=== PATIENT | female | born 1945 | race Caucasian/White ===

== ENCOUNTER 2018-04-20 16:40 | Emergency (ER) | payer BC, MEDICARE ==
[~2018-04-20 16:40] MED LIST changes: -AMLO2.5T75 PO; -IRBE150T50 PO
--- NOTE | 2018-04-20 17:02 | ER Report ---
History and Physical Time Seen By MD: 16:58 HPI/ROS CHIEF COMPLAINT: Chest pain HISTORY OF PRESENT ILLNESS: This is a 72-year-old female who presents to the emergency department via EMS for chest pain. Patient states that about 6:00 this morning she developed midsternal back pain, anterior chest pain radiating up into her neck bilaterally with little bit of discomfort on the left posterior back as well. Patient states they waited for some time thinking that the pain would go away, the pain did start to nitza but never did resolve completely therefore they called EMS. Patient arrives alert and oriented acting appropriate. Patient states the pain now is resolving. Patient did get 1.4 sublingual nitroglycerin as well as 324 baby aspirin and round. 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 Patient also states that she did have some cramping in her left lateral lower leg yesterday. No aches or chills, no headaches, rashes or any other complaints. REVIEW OF SYSTEMS: Constitutional: No fever, no chills. Eyes: No discharge. ENT: No sore throat. Cardiovascular: As above. Respiratory: No cough, no shortness of breath. Gastrointestinal: No abdominal pain, no vomiting. Genitourinary: No hematuria. Musculoskeletal: As above. Skin: No rashes. Neurological: No headache. Allergies: Coded Allergies: morphine (Verified Allergy, Mild, 04/20/18) Uncoded Allergies: contrast dye (Allergy, Intermediate, convulsion , 04/20/18) Home Meds Reported Medications Amlodipine Besylate (NORVASC) 2.5 Mg Tablet, 1 TAB PO QDAY, TAB 04/20/18 Irbesartan (AVAPRO) 150 Mg Tablet, 150 MG PO QDAY 04/20/18 Albuterol Sulfate 90 Mcg/Act (PROAIR HFA 90 MCG/ACT) 8.5 Gm Hfa.aer.ad, 1 - 2 PUFF IH 3-4XD 08/23/13 Estradiol (ESTRACE) 1 Mg Tablet, 1 MG PO 08/23/13 Montelukast Sodium 5 Mg Chew Tab (SINGULAIR 5 MG CHEW TAB) 5 Mg Tab.chew, 1 TAB PO QDAY CHEW ONE TABLET EVERY DAY 08/23/13 Naproxen (NAPROSYN) 250 Mg Tablet, 250 MG PO Q8H, TAB 08/23/13 Hydrochlorothiazide (HYDROCHLOROTHIAZIDE) 25 Mg Tablet, 1 TAB PO QDAY TAKE ONE TABLET BY MOUTH EVERY DAY 08/23/13 Atenolol (ATENOLOL) 25 Mg Tablet, 1 TAB PO BID TAKE ONE TABLET BY MOUTH TWICE A DAY 08/23/13 Past Medical/Surgical History Patient has a past medical and surgical history of hypertension, asthma, bladder disease, wears glasses, appendectomy, cholecystectomy, hysterectomy, tonsillectomy. Reviewed Nurses Notes: Yes Hx Smoking: No Constitutional Vital Sign - Last 24 Hours 04/20/18 04/20/18 04/20/18 04/20/18 16:55 16:55 17:00 17:10 Temp 98.0 Pulse 75 79 75 Resp 16 20 B/P (MAP) 149/84 149/84 (105) 138/79 (98) Pulse Ox 94 90 93 O2 Delivery Room Air 04/20/18 04/20/18 04/20/18 04/20/18 17:25 17:30 17:40 17:55 Pulse 70 77 74 Resp 12 11 11 B/P (MAP) 139/90 (106) Pulse Ox 90 91 92 04/20/18 04/20/18 04/20/18 04/20/18 18:00 18:30 18:35 18:45 Pulse 78 Resp 13 B/P (MAP) 131/77 (95) 131/87 (102) 124/79 (94) Pulse Ox 93 04/20/18 04/20/18 04/20/18 04/20/18 18:50 18:59 19:05 19:06 Pulse 79 75 Resp 13 15 B/P (MAP) 129/81 (97) 128/83 (98) Pulse Ox 90 93 04/20/18 04/20/18 04/20/18 04/20/18 19:10 19:20 19:30 19:35 Pulse 72 73 Resp 21 13 B/P (MAP) 131/84 (100) 133/102 (112) 124/98 (107) Pulse Ox 92 90 04/20/18 19:40 B/P (MAP) 122/84 (97) Intake and Output 6/9/18 6/9/18 6/10/18 14:59 22:59 06:59 Intake Total 50 ml Balance 50 ml Physical Exam General Appearance: The patient is alert, has no immediate need for airway protection and no signs of toxicity. Eyes: Pupils equal and round no pallor or injection. ENT, Mouth: Mucous membranes are moist. Respiratory: There are no retractions, lungs are clear to auscultation. Cardiovascular: Regular rate and rhythm, no murmurs, clicks or rubs. Gastrointestinal: Abdomen is soft and non tender, no masses, bowel sounds normal. Neurological: Alert and oriented 4. Moving all extremities. Following all commands. No focal neuro deficits. Skin: Warm and dry, no rashes. Musculoskeletal: Cervical and thoracic spine discomfort with palpation. No obvious deformities, crepitus or bruising identified. Extremities are nontender, nonswollen and have full range of motion. DIFFERENTIAL DIAGNOSIS: After history and physical exam differential diagnosis was considered for chest pain including but not limited to myocardial ischemia, pericarditis pulmonary embolus, chest wall pain, pleural inflammation and pulmonary infectious causes.back pain including but not limited to muscular pain , herniated disc, spine fracture, intra-abdominal causes and urinary tract infection. Medical Decision Making Data Points Result Diagram: 04/20/18 1746 04/20/18 1746 Laboratory Hematology Test 04/20/18 17:46 04/20/18 17:55 Red Blood Count 4.68 M/uL (4.17-5.56) Mean Corpuscular Volume 91.1 fL (80.0-96.0) Mean Corpuscular Hemoglobin 32.2 pg (26.0-33.0) Mean Corpuscular Hemoglobin Concent 35.4 g/dL (32.0-36.0) Red Cell Distribution Width 12.7 % (11.5-14.5) Mean Platelet Volume 8.0 fL (7.2-11.1) Neutrophils (%) (Auto) 80.1 % (39.4-72.5) Lymphocytes (%) (Auto) 10.5 % (17.6-49.6) Monocytes (%) (Auto) 5.8 % (4.1-12.4) Eosinophils (%) (Auto) 2.7 % (0.4-6.7) Basophils (%) (Auto) 0.9 % (0.3-1.4) Nucleated RBC Relative Count (auto) 0.1 /100WBC Neutrophils # (Auto) 7.5 K/uL (2.0-7.4) Lymphocytes # (Auto) 1.0 K/uL (1.3-3.6) Monocytes # (Auto) 0.6 K/uL (0.3-1.0) Eosinophils # (Auto) 0.3 K/uL (0.0-0.5) Basophils # (Auto) 0.1 K/uL (0.0-0.1) Nucleated RBC Absolute Count (auto) 0.01 K/uL Sodium Level 137 mmol/L (137-145) Potassium Level 3.7 mmol/L (3.5-5.0) Chloride Level 102 mmol/L (98-107) Carbon Dioxide Level 22 mmol/L (22-31) Blood Urea Nitrogen 27 mg/dl (7-18) Creatinine 1.40 mg/dl (0.52-1.04) Glomerular Filtration Rate Calc 37.0 Random Glucose 114 mg/dl (75-110) Calcium Level 9.8 mg/dl (8.4-10.2) Total Bilirubin 0.5 mg/dl (0.2-1.3) Aspartate Amino Transf (AST/SGOT) 35 U/L (0-35) Alanine Aminotransferase (ALT/SGPT) 42 U/L (0-56) Alkaline Phosphatase 83 U/L (0-126) Troponin I 0.162 ng/ml Total Protein 6.7 gm/dl (6.3-8.2) Albumin 4.1 g/dl (3.5-5.0) D-Dimer Quantitative (PE/DVT) 0.27 ug/ml (0-0.50) Chemistry Test 04/20/18 17:46 04/20/18 17:55 White Blood Count 9.4 k/uL (4.5-11.0) Red Blood Count 4.68 M/uL (4.17-5.56) Hemoglobin 15.1 g/dL (12.0-16.0) Hematocrit 42.6 % (34.0-47.0) Mean Corpuscular Volume 91.1 fL (80.0-96.0) Mean Corpuscular Hemoglobin 32.2 pg (26.0-33.0) Mean Corpuscular Hemoglobin Concent 35.4 g/dL (32.0-36.0) Red Cell Distribution Width 12.7 % (11.5-14.5) Platelet Count 222 K/uL (150-450) Mean Platelet Volume 8.0 fL (7.2-11.1) Neutrophils (%) (Auto) 80.1 % (39.4-72.5) Lymphocytes (%) (Auto) 10.5 % (17.6-49.6) Monocytes (%) (Auto) 5.8 % (4.1-12.4) Eosinophils (%) (Auto) 2.7 % (0.4-6.7) Basophils (%) (Auto) 0.9 % (0.3-1.4) Nucleated RBC Relative Count (auto) 0.1 /100WBC Neutrophils # (Auto) 7.5 K/uL (2.0-7.4) Lymphocytes # (Auto) 1.0 K/uL (1.3-3.6) Monocytes # (Auto) 0.6 K/uL (0.3-1.0) Eosinophils # (Auto) 0.3 K/uL (0.0-0.5) Basophils # (Auto) 0.1 K/uL (0.0-0.1) Nucleated RBC Absolute Count (auto) 0.01 K/uL Glomerular Filtration Rate Calc 37.0 Calcium Level 9.8 mg/dl (8.4-10.2) Total Bilirubin 0.5 mg/dl (0.2-1.3) Aspartate Amino Transf (AST/SGOT) 35 U/L (0-35) Alanine Aminotransferase (ALT/SGPT) 42 U/L (0-56) Alkaline Phosphatase 83 U/L (0-126) Troponin I 0.162 ng/ml Total Protein 6.7 gm/dl (6.3-8.2) Albumin 4.1 g/dl (3.5-5.0) D-Dimer Quantitative (PE/DVT) 0.27 ug/ml (0-0.50) Coagulation Test 04/20/18 17:55 D-Dimer Quantitative (PE/DVT) 0.27 ug/ml EKG/Imaging EKG Interpretation 12 lead EKG: Time of EKG 1656. Rhythm: Normal sinus rhythm, ventricular rate 72 bpm. [place]: normal QRS: normal ST segments: No ST depression or elevation identified. Inverted T wave in V2. Imaging 2 VIEWS CHEST INDICATION: Chest pain. COMPARISON: None available FINDINGS: Cardiomediastinal silhouette and pulmonary vessels within normal limits. There is no focal infiltrate or lobar consolidation. There is no pneumothorax or pleural effusion. No nodule. Upper abdomen is unremarkable. No acute bony abnormality. IMPRESSION: 1. No acute cardiopulmonary process. Report Dictated By: Festus Aguilar at 04/20/2018 6:28 PM Report E-Signed By: Festus Aguilar at 04/20/2018 6:30 PM WSN:[id number] THORACIC SPINE 3 VIEWS INDICATION: Back pain. COMPARISON: None available FINDINGS: 3 views of the thoracic spine. The vertebral bodies are aligned. No compression fractures or bony lesions. Mild anterior degenerative osteophytes without other significant degenerative changes. The end plates are maintained. Pedicles well seen. The remaining bony and soft tissues are unremarkable. Visualized lumbar spine does show mild degenerative changes at the L3-4 level. IMPRESSION: Mild degenerative changes without acute abnormality. Report Dictated By: Festus Aguilar at 04/20/2018 6:39 PM Report E-Signed By: Festus Aguilar at 04/20/2018 6:41 PM WSN:[id number] Location: [facility] Patient: Marybel Gallegos : 1945 Visit/Account:[id number] Date of : 04/20/2018 CERVICAL SPINE 2 OR 3 VIEW INDICATION: Neck pain. COMPARISON: None available FINDINGS: 3 views of the cervical spine. There is minimal anterior spondylolisthesis of C5 over C6 due to degenerative changes. The remaining vertebral bodies are aligned. No fracture or facet dislocation. No bony lesions. There is diffuse bvli-fj-jgwtsfxy degenerative changes which are more prominent C6-7 level. These changes include disc space narrowing, osteophytes and facet arthropathy. The endplates are maintained. The prevertebral soft tissues are normal. Lung apices are clear. IMPRESSION: Degenerative changes without acute abnormality. Report Dictated By: Festus Aguilar at 04/20/2018 6:42 PM Report E-Signed By: Festus Aguilar at 04/20/2018 6:44 PM WSN:[email or web address] ED Course/Re-evaluation Clinical Indication for ER IV: Hydration, IV Access ED Course The patient was admitted to room via EMS. History of physical was obtained. Differential diagnoses were considered. Patient was given one sublingual nitroglycerin in route by EMS, as well as 324 baby aspirin. An IV was started via EMS. A CBC, CMP, d-dimer and troponin were obtained. CBC unremarkable. Chemistry showing BUN 27 creatinine 1.4. Negative d-dimer. Troponin positive at 0.162. Two-view chest x-ray, thoracic and cervical spine x-rays were obtained. Thoracic and cervical spine x-ray showing mild degenerative disease. Negative chest x-ray. Patient was given one 0.4 mg sublingual nitroglycerin with mild relief of her back pain. I did review these results with the patient, she is visibly upset, however she does understand that the elevated troponin does indicate further investigation. I did speak with Dr. Malave as noted below from [facility] he's accepted the patient into his services. Patient will be transferred to [facility] via ground ambulance for an NSTEMI. Patient was also given 5 mg IV metoprolol. Vital signs at this time heart rate 80, pulse ox 91% on room air, BP 124/79. The patient had no other questions at this time. 04/20/2018 6:18:16 pm laboratory called with critical troponin of 0.162. 04/20/2018 6:48:24 pm I did speak with Dr. Malave, the melting furnace skimmer on-call at [facility], he agrees with the patient's symptomology and elevated troponin that she would benefit from further investigation. Patient will be transferred to [facility] via ground EMS. Dr. Malave also recommended giving metoprolol, the patient is asymptomatic at this time we'll hold off on the heparin. Decision to Disposition Date: Apr 20, 2018 Decision to Disposition Time: 18:47 Depart Departure Latest Vital Signs Vital Signs Date Time Temp Pulse Resp B/P (MAP) Pulse Ox O2 Delivery O2 Flow Rate FiO2 04/20/18 19:40 122/84 (97) 04/20/18 19:35 73 13 90 04/20/18 16:55 98.0 Room Air Impression: Primary Impression: NSTEMI (non-ST elevated myocardial infarction) Additional Impressions: Chest pain Elevated troponin Condition: Improved Disposition: XFER TO [facility] Problem Qualifiers Additional Impressions: Chest pain Chest pain type: chest pain due to myocardial ischemia Ischemic chest pain type: unspecified angina pectoris type Qualified Codes: I25.9 - Chronic ischemic heart disease, unspecified NAVA SIERRA [facility]- Apr 20, 2018 17:02
[2018-04-20] MEDS ORDERED: IRBE150T50 PO (17:13)
[2018-04-20] MEDS ORDERED: AMLO2.5T75 PO (17:13)
--- NOTE | 2018-04-20 17:21 | EKG ---
FACILITY: [facility] PATIENT NAME: APRIL JOY : [id number] MR: [id number] V: [id number] EXAM DATE: ORDERING PHYSICIAN: NAVA SIERRA TECHNOLOGIST: LEN Viveros Reason : CHEST PAIN Blood Pressure : / mmHG Vent. Rate : 072 BPM Atrial Rate : 072 BPM P-R Int : 150 ms QRS Dur : 088 ms QT Int : 410 ms P-R-T Axes : 044 -02 071 degrees QTc Int : 448 ms Normal sinus rhythm Low voltage QRS T flattening/inversion consistent with ischemia vs normal variant No previous ECGs available Confirmed by SOHPIA LOPEZ ([id number]) on 04/20/2018 9:07:00 PM Referred By: ARLETTE Confirmed By:SOPHIA LOPEZ
[2018-04-20 17:53] LABS: PLATELET COUNT, AUTOMATED 222 K/uL (150-450)
[2018-04-20] MEDS ORDERED: EMS NS 0.9%(*) 1000 ML BAG 1,000 ML IV ONE (18:10)
[2018-04-20] MEDS ORDERED: NITROGLYCERIN 0.4 MG SUBL SL ONE (18:30)
--- NOTE | 2018-04-20 18:34 | RADIOLOGY IMAGING REPORT ---
FACILITY: [facility] PATIENT NAME: Marybel Gallegos : 1945 MR: [id number] V: [id number] EXAM DATE: ORDERING PHYSICIAN: NAVA SIERRA TECHNOLOGIST: Location: [facility] Patient: Marybel Gallegos : 1945 Visit/Account:[id number] Date of Sevice: 04/20/2018 2 VIEWS CHEST INDICATION: Chest pain. COMPARISON: None available FINDINGS: Cardiomediastinal silhouette and pulmonary vessels within normal limits. There is no focal infiltrate or lobar consolidation. There is no pneumothorax or pleural effusion. No nodule. Upper abdomen is unremarkable. No acute bony abnormality. IMPRESSION: 1. No acute cardiopulmonary process. Report Dictated By: Festus Aguilar at 04/20/2018 6:28 PM Report E-Signed By: Festus Aguilar at 04/20/2018 6:30 PM WSN:[id number]
--- NOTE | 2018-04-20 18:45 | RADIOLOGY IMAGING REPORT ---
FACILITY: [facility] PATIENT NAME: Marybel Gallegos : 1945 MR: [id number] V: [id number] EXAM DATE: ORDERING PHYSICIAN: NAVA SIERRA TECHNOLOGIST: Location: [facility] Patient: Marybel Gallegos : 1945 Visit/Account:[id number] Date of Sevice: 04/20/2018 THORACIC SPINE 3 VIEWS INDICATION: Back pain. COMPARISON: None available FINDINGS: 3 views of the thoracic spine. The vertebral bodies are aligned. No compression fractures or bony lesions. Mild anterior degenerative osteophytes without other significant degenerative glez es. The end plates are maintained. Pedicles well seen. The remaining bony and soft tissues are unrema rkable. Visualized lumbar spine does show mild degenerative changes at the L3-4 level. IMPRESSION: Mild degenerative changes without acute abnormality. Report Dictated By: Festus Aguilar at 04/20/2018 6:39 PM Report E-Signed By: Festus Aguilar at 04/20/2018 6:41 PM WSN:[id number]
--- NOTE | 2018-04-20 18:47 | RADIOLOGY IMAGING REPORT ---
FACILITY: [facility] PATIENT NAME: Marybel Gallegos : 1945 MR: [id number] V: [id number] EXAM DATE: ORDERING PHYSICIAN: NAVA SIERRA TECHNOLOGIST: Location: [facility] [place] Patient: Marybel Gallegos : 1945 Visit/Account:[id number] Date of Sevice: 04/20/2018 CERVICAL SPINE 2 OR 3 VIEW INDICATION: Neck pain. COMPARISON: None available FINDINGS: 3 views of the cervical spine. There is minimal anterior spondylolisthesis of C5 over C6 due to degenerative changes. The remaining vertebral bodies are aligned. No fracture or facet disloca tion. No bony lesions. There is diffuse oqmo-rb-kzfetidy degenerative changes which are more prominen t C6-7 level. These changes include disc space narrowing, osteophytes and facet arthropathy. The endp lates are maintained. The prevertebral soft tissues are normal. Lung apices are clear. IMPRESSION: Degenerative changes without acute abnormality. Report Dictated By: Festus Aguilar at 04/20/2018 6:42 PM Report E-Signed By: Festus Aguilar at 04/20/2018 6:44 PM WSN:[email or web address]
[2018-04-20] MEDS ORDERED: METOPROLOL TART 5 MG/5 ML VIAL IVP ONE (18:50)
[2018-04-20 19:40] VITALS: BP 122/84
== END 2018-04-20 19:44 | disposition short-term general hospital (02) ==
LOC: ER 16:54
DX: I21.4 Non-ST elevation (NSTEMI) myocardial infarction (principal); I25.9 Chronic ischemic heart disease, unspecified; R79.89 Other specified abnormal findings of blood chemistry
CPT/HCPCS: 36415; 71046; 72040; 72072; 84484; 85025; 85379; 93005; 96361; 96374; 99284; J3490; 82040; 82247; 82310; 82374; 82435; 82565; 82947; 84075; 84132; 84155; 84295; 84450; 84460; 84520

== ENCOUNTER → 2018-04-20 | Outpatient (CLI) | payer MEDICARE ==
[~2018-04-20] MED LIST: ALBU8.5H IH; AMLO2.5T75 PO; ATEN-65 PO; ESTR-35 PO; HYDR-2966 PO; IRBE150T50 PO; MONT5TAB PO; NAPR-712 PO
== END ==
LOC: AMB 19:39
PROVIDERS: ATTEND Nurse Practitioner
DX: I21.4 Non-ST elevation (NSTEMI) myocardial infarction (principal); R79.89 Other specified abnormal findings of blood chemistry
CPT/HCPCS: A0425; A0426

== ENCOUNTER → 2018-04-20 | Outpatient (CLI) | payer MEDICARE | LOC: AMB 16:13 | PROVIDERS: ATTEND Nurse Practitioner | DX: R07.1 Chest pain on breathing (principal); R53.1 Weakness | CPT/HCPCS: A0425; A0427 ==

== ENCOUNTER → 2018-05-07 | Outpatient (CLI) | payer MEDICARE, BC ==
[~2018-05-07] MED LIST changes: +ACIPHX20PT PO; +AMLO2.5T75 PO; +ASPI-1471 PO; +ATOR40TA69 PO; +CLOP75TA PO; +IRBE150T50 PO; +MONT10TA4 PO
[2018-05-07 10:47] LABS: PLATELET COUNT, AUTOMATED 344 K/uL (150-450)
== END ==
LOC: LAB 10:32
PROVIDERS: ATTEND Internal Medicine
DX: I21.4 Non-ST elevation (NSTEMI) myocardial infarction (principal); E78.5 Hyperlipidemia, unspecified; I10 Essential (primary) hypertension
CPT/HCPCS: 36415; 82040; 82247; 82310; 82374; 82435; 82565; 82947; 84075; 84132; 84155; 84295; 84450; 84460; 84520; 85025

== ENCOUNTER → 2018-05-22 | Outpatient (CLI) | payer MEDICARE ==
[2018-05-22 09:06] LABS: PLATELET COUNT, AUTOMATED 280 K/uL (150-450)
== END ==
LOC: LAB 08:39
PROVIDERS: ATTEND Internal Medicine
DX: I10 Essential (primary) hypertension (principal); I25.10 Atherosclerotic heart disease of native coronary artery without angina pectoris; E78.2 Mixed hyperlipidemia
CPT/HCPCS: 36415; 81001; 82040; 82247; 82310; 82374; 82435; 82465; 82565; 82947; 83718; 84075; 84132; 84155; 84295; 84439; 84443; 84450; 84460; 84478; 84520; 84550; 85025

== ENCOUNTER 2018-06-02 06:08 | Emergency (ER) | payer MEDICARE ==
--- NOTE | 2018-06-02 06:16 | ER Report ---
History and Physical Time Seen By MD: 06:15 (JOSE VARGAS DO) HPI/ROS CHIEF COMPLAINT: Hematuria, urgency HISTORY OF PRESENT ILLNESS: 72-year-old female presents with urgency which woke her up at 3 AM. Patient at that time had clear urine. She is subsequently developed hematuria. She feels like she is unable to empty her bladder. She notes no fever or chills. She notes no back pain. She denies any nausea or vomiting. She does report that she did have a urinary tract infection a year ago. This feels somewhat similar. REVIEW OF SYSTEMS: Respiratory: No cough, no dyspnea. Cardiovascular: No chest pain, no palpitations. Gastrointestinal: As above Musculoskeletal: No back pain. (JOSE VARGAS DO) Allergies: Coded Allergies: morphine (Verified Allergy, Mild, 04/20/18) Uncoded Allergies: contrast dye (Allergy, Intermediate, convulsion , 04/20/18) Home Meds Active Scripts Montelukast Sodium (MONTELUKAST SODIUM) 10 Mg Tablet, 1 TAB PO QDAY, #90 TAB 3 Refills Prov:JESSENIA URBAN MD 05/27/18 Clopidogrel Bisulfate (CLOPIDOGREL) 75 Mg Tablet, 1 TAB PO QDAY, #90 TAB 3 Refills Prov:JESSENIA URBAN MD 05/07/18 Atorvastatin Calcium (ATORVASTATIN CALCIUM) 40 Mg Tablet, 1 TAB PO QDAY, #90 TAB 3 Refills Prov:JESSENIA URBAN MD 05/07/18 Hydrochlorothiazide (HYDROCHLOROTHIAZIDE) 25 Mg Tablet, 1 TAB PO QDAY, #90 TAB 3 Refills TAKE ONE TABLET BY MOUTH EVERY DAY Prov:JESSENIA URBAN MD 05/07/18 Reported Medications Rabeprazole Sodium (ACIPHEX) 20 Mg Tablet.dr, 20 MG PO QDAY, TAB 05/07/18 Aspirin (ASPIR 81) 81 Mg Tablet.dr, 81 MG PO QDAY, TAB 05/07/18 Amlodipine Besylate (NORVASC) 2.5 Mg Tablet, 1 TAB PO QDAY, TAB 04/20/18 Irbesartan (AVAPRO) 150 Mg Tablet, 150 MG PO QDAY 04/20/18 Albuterol Sulfate 90 Mcg/Act (PROAIR HFA 90 MCG/ACT) 8.5 Gm Hfa.aer.ad, 1 - 2 PUFF IH 3-4XD 08/23/13 Estradiol (ESTRACE) 1 Mg Tablet, 0.5 MG PO QDAY 08/23/13 Atenolol (ATENOLOL) 25 Mg Tablet, 0.5 TAB PO 08/23/13 Past Medical/Surgical History Past Medical History Cardiovascular: Reports hx of: coronary artery disease hyperlipidemia hypertension myocardial infarction (6.11.18) Respiratory: Reports hx of: asthma Gastrointestinal: Reports hx of: GERD Past Surgical History HEENT: Reports hx of: tonsillectomy Gastrointestinal: Reports hx of: appendectomy (1970) cholecystectomy (1981, unsure date) Gynecologic: Reports hx of: hysterectomy (1988) (JOSE VARGAS DO) Reviewed Nurses Notes: Yes Old Medical Records Reviewed: Yes (JOSE VARGAS DO) Hx Smoking: No Smoking Status: Never Smoker (JOSE VARGAS DO) Constitutional Vital Sign - Last 24 Hours 06/02/18 06/02/18 06:18 07:05 Temp 98.5 Pulse 88 Resp 16 B/P (MAP) 144/104 151/85 (107) Pulse Ox 97 O2 Delivery Room Air (DION PATEL MD) Physical Exam General Appearance: The patient is alert, has no immediate need for airway protection and no current signs of toxicity. Vital signs stable, afebrile, pulse ox normal Eyes: Pupils equal and round no injection. Respiratory: Chest is non tender, lungs are clear to auscultation. Cardiac: regular rate and rhythm Gastrointestinal: Abdomen is soft mild suprapubic tenderness, no masses, bowel sounds normal. Musculoskeletal: Neck: Neck is supple and non tender. Extremities have full range of motion and are non tender. Skin: No rashes or lesions. DIFFERENTIAL DIAGNOSIS: After history and physical exam differential diagnosis was considered for abdominal pain in a female including but not limited to ovarian cyst, pelvic inflammatory disease, ovarian torsion, urinary tract infection, and appendicitis. (JOSE VARGAS DO) Medical Decision Making Data Points Laboratory Hematology Test 06/02/18 06:14 Urine Color Red Urine Clarity Cloudy Urine pH 6.0 pH (4.8-9.5) Urine Specific [place] 1.010 Urine Protein 100 mg/dL (NEGATIVE) Urine Glucose (UA) Negative mg/dL (NEGATIVE) Urine Ketones Negative mg/dL (NEGATIVE) Urine Blood Large (NEGATIVE) Urine Nitrite Negative (NEGATIVE) Urine Bilirubin Negative (NEGATIVE) Urine Urobilinogen 0.2 mg/dL (0.2-1.9) Urine Leukocyte Esterase Moderate (NEGATIVE) Urine RBC Tntc /HPF (0-2/HPF) Urine WBC 20-30 /HPF (0-5/HPF) Urine Squamous Epithelial Cells Few /LPF (</=FEW) Urine Transitional Epithelial Cells /LPF (NONE-FEW) Urine Bacteria Rare /HPF (NONE-FEW) Urine Mucus None /HPF (NONE-FEW) Chemistry Test 06/02/18 06:14 Urine Color Red Urine Clarity Cloudy Urine pH 6.0 pH (4.8-9.5) Urine Specific [place] 1.010 Urine Protein 100 mg/dL (NEGATIVE) Urine Glucose (UA) Negative mg/dL (NEGATIVE) Urine Ketones Negative mg/dL (NEGATIVE) Urine Blood Large (NEGATIVE) Urine Nitrite Negative (NEGATIVE) Urine Bilirubin Negative (NEGATIVE) Urine Urobilinogen 0.2 mg/dL (0.2-1.9) Urine Leukocyte Esterase Moderate (NEGATIVE) Urine RBC Tntc /HPF (0-2/HPF) Urine WBC 20-30 /HPF (0-5/HPF) Urine Squamous Epithelial Cells Few /LPF (</=FEW) Urine Transitional Epithelial Cells /LPF (NONE-FEW) Urine Bacteria Rare /HPF (NONE-FEW) Urine Mucus None /HPF (NONE-FEW) Urinalysis Test 06/02/18 06:14 Urine Color Red Urine Clarity Cloudy Urine pH 6.0 pH (4.8-9.5) Urine Specific [place] 1.010 Urine Protein 100 mg/dL (NEGATIVE) Urine Glucose (UA) Negative mg/dL (NEGATIVE) Urine Ketones Negative mg/dL (NEGATIVE) Urine Blood Large (NEGATIVE) Urine Nitrite Negative (NEGATIVE) Urine Bilirubin Negative (NEGATIVE) Urine Urobilinogen 0.2 mg/dL (0.2-1.9) Urine Leukocyte Esterase Moderate (NEGATIVE) Urine RBC Tntc /HPF (0-2/HPF) Urine WBC 20-30 /HPF (0-5/HPF) Urine Squamous Epithelial Cells Few /LPF (</=FEW) Urine Transitional Epithelial Cells /LPF (NONE-FEW) Urine Bacteria Rare /HPF (NONE-FEW) Urine Mucus None /HPF (NONE-FEW) (DION PATEL MD) ED Course/Re-evaluation Turned Over The care of the patient was turned over to Dr Patel. Dr. Vargas I authorize my typed signature that I authenticated this report. (JOSE VARGAS DO) ED Course Urinalysis consistent with urinary tract infection will send urine for urine culture start Keflex and Pyridium. Decision to Disposition Date: Jun 02, 2018 Decision to Disposition Time: 07:16 Turned Over 06/02/2018 7:03:42 am accepted care of patient at this time. Awaiting for urinalysis. (DION PATEL MD) Depart Departure Latest Vital Signs Vital Signs Date Time Temp Pulse Resp B/P (MAP) Pulse Ox O2 Delivery O2 Flow Rate FiO2 06/02/18 07:05 151/85 (107) 06/02/18 06:18 98.5 88 16 97 Room Air (DION PATEL MD) Impression: Primary Impression: Urinary tract infection Condition: Improved Disposition: HOME OR SELF-CARE Referrals: JESSENIA URBAN MD (PCP) 2 Days if symptoms persist New Scripts Phenazopyridine Hcl (PHENAZOPYRIDINE HCL) 200 Mg Tablet 200 MG PO TID, #6 TAB 0 Refills Prov: DION PATEL MD 06/02/18 Cephalexin (KEFLEX) 500 Mg Capsule 500 MG PO Q6H, #20 CAP 0 Refills TAKE ONE CAPSULE BY MOUTH EVERY SIX HOURS Prov: DION PATEL MD 06/02/18 Patient Instructions: Urinary Tract Infection in Women (ED) Problem Qualifiers Primary Impression: Urinary tract infection Urinary tract infection type: acute cystitis Hematuria presence: with hematuria Qualified Codes: N30.01 - Acute cystitis with hematuria JOSE VARGAS DO Jun 02, 2018 06:16 DION PATEL MD Jun 02, 2018 07:04
[2018-06-02 07:05] VITALS: BP 151/85
[2018-06-02] MEDS ORDERED: PHENAZOPYRIDINE 200 MG TAB PO ONE (07:15)
[2018-06-02] MEDS ORDERED: CEPHALEXIN MONO 500 MG CAP PO ONE (07:15)
[2018-06-02] MEDS ORDERED: CEPH-13 PO (07:18)
[2018-06-02] MEDS ORDERED: PHEN200T32 PO (07:18)
[2018-06-02] MEDS ORDERED: CEPHALEXIN 500 MG CAP TH 2 CAP/BOTTLE PO ONE (07:25)
[2018-06-02] MEDS ORDERED: PHENAZOPYRIDINE 200 MG TAB TH 2 TAB/BOTTLE PO ONE ×2 (07:25→07:40)
[2018-06-02] MEDS ORDERED: CEPHALEXIN 500 MG CAP TH 2 CAP/BOTTLE ONE (07:34)
== END 2018-06-02 07:34 | disposition home or self-care (01) ==
LOC: ER 06:21
DX: N30.01 Acute cystitis with hematuria (principal)
CPT/HCPCS: 81001; 99283; A9270

== ENCOUNTER → 2018-06-07 | Outpatient (CLI) | payer MEDICARE, BC ==
[~2018-06-07] MED LIST changes: +CEPH-13 PO; +CIPR-345 PO; +PHEN200T32 PO
== END ==
LOC: LAB 10:06
PROVIDERS: ATTEND Internal Medicine
DX: N39.0 Urinary tract infection, site not specified (principal)
CPT/HCPCS: 81001

== ENCOUNTER → 2018-06-26 | Outpatient (CLI) | payer MEDICARE, BC ==
[~2018-06-26] MED LIST changes: +FLUT16SP19 NS; +PANT20TA27 PO; +RABE20TA PO; +VARI50KI IM
== END ==
LOC: LAB 09:26
PROVIDERS: ATTEND Internal Medicine
DX: I12.9 Hypertensive chronic kidney disease with stage 1 through stage 4 chronic kidney disease, or unspecified chronic kidney disease (principal); N18.9 Chronic kidney disease, unspecified; I25.10 Atherosclerotic heart disease of native coronary artery without angina pectoris; E05.90 Thyrotoxicosis, unspecified without thyrotoxic crisis or storm
CPT/HCPCS: 36415; 82040; 82247; 82310; 82374; 82435; 82565; 82947; 84075; 84132; 84155; 84295; 84439; 84443; 84450; 84460; 84520

== ENCOUNTER → 2018-07-04 | Outpatient (CLI) | payer MEDICARE, BC ==
--- NOTE | 2018-07-04 10:19 | RADIOLOGY IMAGING REPORT ---
[place] [facility] [place] Marybel Gallegos : 1945 MR: [id number] V: [id number] EXAM DATE: ORDERING PHYSICIAN: JESSENIA URBAN TECHNOLOGIST: [place] [facility] [place] Marybel Gallegos : 1945 Visit/Account:[id number] Date of Sevice: 07/04/2018 EXAMINATION: Ultrasound thyroid HISTORY: Hyperthyroidism. COMPARISON: None. FINDINGS: Thyroid size: Right lobe: 4.6 x 1.5 x 1.4 cm Left lobe: 4.4 x 1.5 x 1.5 cm Isthmus: 0.1 cm Thyroid heterogeneity: Mildly heterogeneous. Thyroid vascularity: Normal. Thyroid nodules: Right lobe: * Scattered subcentimeter cysts and nodules, the largest measuring 8 mm in the mid lobe. The nodule s are not hypervascular. Left lobe: * Scattered subcentimeter cysts and nodules, the largest measuring 7 mm in the mid lobe. The nodule s are not hypervascular. Isthmus: * None discrete. Additional findings: None. IMPRESSION: Mildly heterogeneous thyroid with scattered subcentimeter cysts and nodules. This could indicate mul tinodular thyroid, or chronic thyroiditis, including Berto's. None of the thyroid cysts or nodul es meet criteria for FNA biopsy. REFERENCE: 2015 [place] [employer] Management Guidelines for Adult Patients with Thyroid Nodules and D ifferentiated Thyroid Cancer: The [place] [employer] Guidelines Task Force on Thyroid Nodul es and Differentiated Thyroid Cancer. SONOGRAPHIC PATTERNS: * Benign: Purely cystic nodules (no solid component); estimated risk of malignancy <1 percent; no bi opsy recommended. * Very Low Suspicion: Spongiform or partially cystic nodules without any of the sonographic features described in low, intermediate, or high suspicion patterns; estimated risk of malignancy <3 percent; consider FNA at > 2 cm (Observation without FNA is also a reasonable option). * Low Suspicion: Isoechoic or hyperechoic solid nodule, or partially cystic nodule with eccentric so lid areas, without microcalcification, irregular margin or ETE (extra-thyroidal extension), or taller than wide shape; estimated risk of malignancy 5-10 percent; recommend FNA at >1.5 cm. * Intermediate Suspicion: Hypoechoic solid nodule with smooth margins without microcalcifications, E TE (extra-thyroidal extension), or taller than wide shape; estimated risk of malignancy 10-20 percent ; recommend FNA at > 1 cm. * High Suspicion: Solid hypoechoic nodule or solid hypoechoic component of a partially cystic nodule with one or more of the following features: irregular margins (infiltrative, microlobulated), microc alcifications, taller than wide shape, rim calcifications with small extrusive soft tissue component, evidence of ETE (extra-thyroidal extension); estimated risk of malignancy >70-90 percent; recommend FNA at > 1 cm. NOTES: * Although a sonographically suspicious subcentimeter thyroid nodule without evidence of extrathyroi gurpreet extension or sonographically suspicious lymph nodes may be observed with close sonographic follow -up rather than pursuing immediate FNA, patient age and preference may modify decision-making. * A > 50% interval increase in nodule volume and/or development of new suspicious sonographic featur es are felt to be a valid reasons for potential re-aspiration of a nodule previously shown to have be nign FNA cytology. Report Dictated By: Alisa Abraham MD at 07/04/2018 10:12 AM Report E-Signed By: Alisa Abraham MD at 07/04/2018 10:16 AM WSN:[id number]
== END ==
LOC: US 01:19
PROVIDERS: ATTEND Internal Medicine
DX: E04.2 Nontoxic multinodular goiter (principal)
CPT/HCPCS: 76536

== ENCOUNTER 2018-07-26 10:00 | Outpatient (RCR) | payer MEDICARE, BC ==
[2018-04-29 16:31] VITALS: BP 118/64
[2018-04-29 16:32] VITALS: BP 120/70
--- NOTE | 2018-04-29 16:57 | CARDIAC REHAB PLAN OF CARE ---
Physician: Adelfo Nance MD Patient is being seen: Jade Shi Medical Diagnosis: NSTEMI; PTCA x 1 Date of Initial Evaluation: 04/29/18 INTERVENTIONS: SHORT TERM GOALS Short Term Goals Due Date: 05/29/18 Short Term Goals: Patient comes to cardiac rehab following a NSTEMI and Stent x1. She has a history of chronic kidney disease, asthma, and hypertension. Until now she has been relatively sedentary but is enthusiastic to start the program. Over the next month our primary goal will be to help the patient improve exercise tolerance with a focus primarily on duration of exercise. We will start with at least 20 minutes of total exercise (5 on the elliptical and 15 on the treadmill) with a HR range between 100-115bpm. By the end of the month the patient's goal will be to maintain 45 minutes of continuous moderate intensity exercise during rehab. We will also encourage increasing leisure time activity at home by gradually increasing the amount of time and steps taken on days away from cardiac rehab. Short Term Goals Met: Short Term Goals Not Met Due To: DOCUMENT REVIEW ATTORNEY GOALS Longterm Goal Due Date: 06/29/18 Longterm Goals: half-way goals to be accomplished over the next month will be to increase total exercise time to achieving the recommended 150min/week of moderate intensity continuous exercise, with at least 15 minutes/session being done on the elliptical. We hope to accomplish this while maintaining a MET level of at least 4.0 on average. Another goal will be to increase upper body strength and endurance. She will currently start at 3lb weights, but will hope to progress towards 5lb weights at the end of the next two months. Throughout this program it is a goal to improve the patient's LVEF from the current 45-50% to the normal >55%. Longterm Goals Met: Cost Coordinator Goals Not Met Due To: PATIENT'S GOALS Patient Goals Due Date: 05/29/18 Patient Goals: Patient goals include to improve confidence, increase heart strength (e.g. LVEF), and upper body strength. Patient Goals Met: Patient Goals Not Met Due To: Cardiac Rehabilitation Plan of Care Comment: In order to meet the above goals, the patient will be monitored for BP, HR, SPO2, and ECG to ensure proper exercise target achievement and safety. We will further use this information to develop an individualized exercise prescription that meets these goals. Further more, we will provide education to help facilitate proper healing and behavior change following her cardiac event. Her primary behavior change will include limiting sedentary time and increasing leisure physical activity alongside exercise at cardiac rehabilitation. Nutrition marquez, there is not much need for improvement, but much improvement can be made through exercise. Most importantly, we will also encourage mental and emotional health. We will provide positive encouragement during exercise and be her quality assurance coach to help keep her motivated. By the end of her program with us it is a primary goal to help her improve her self-confidence when it comes to her safety and health. DAINA
[2018-05-01 13:35] VITALS: BP 122/64
[2018-05-01 13:36] VITALS: BP 120/68
[2018-05-03 13:16] VITALS: BP 118/60
[2018-05-03 13:18] VITALS: BP 114/60
[2018-05-06 12:57] VITALS: BP 144/72
[2018-05-06 12:58] VITALS: BP 122/58
[2018-05-08 11:33] VITALS: BP_SYST 108; BP_SYST 134; BP_DIAS 66; BP_DIAS 68
[2018-05-10 13:21] VITALS: BP 110/68
[2018-05-10 13:22] VITALS: BP 104/60
[2018-05-13 13:26] VITALS: BP 122/62
[2018-05-13 13:28] VITALS: BP 118/68
[2018-05-17 16:50] VITALS: BP_SYST 120; BP_SYST 128; BP_DIAS 64
[2018-05-20 13:13] VITALS: BP 126/60
[2018-05-20 13:14] VITALS: BP 106/68
[2018-05-22 13:15] VITALS: BP_SYST 104; BP_SYST 120; BP_DIAS 64
[2018-05-24 13:32] VITALS: BP 128/66
[2018-05-24 13:33] VITALS: BP 110/50
[2018-05-27 13:18] VITALS: BP 130/68
[2018-05-27 13:19] VITALS: BP 114/62
[2018-05-29 13:33] VITALS: BP_SYST 118; BP_SYST 128; BP_DIAS 66; BP_DIAS 74
[2018-05-31 13:17] VITALS: BP_SYST 116; BP_SYST 136; BP_DIAS 64; BP_DIAS 74
--- NOTE | 2018-06-03 12:06 | CARDIAC REHAB PLAN OF CARE ---
Physician: Adelfo Nance MD Patient is being seen: Jade Shi Medical Diagnosis: Stent x 1 Date of Initial Evaluation: 04/29/18 Date patient was last seen: 05/31/18 Number of treatments: 14 INTERVENTIONS: SHORT TERM GOALS Short Term Goals Due Date: 07/04/18 Short Term Goals: Patient comes to cardiac rehab following a NSTEMI and Stent x1. She has a history of chronic kidney disease, asthma, and hypertension. Until now she has been relatively sedentary but is enthusiastic to start the program. Over the next month it will be our goal to maintain at least 45 minutes of exercise between the HR range of 105-125bpm, pending BP stays within a safe range and does not prove to be a limitation. The patient's primary goal will be to increase her intensity as far as HR and level is concerned. She will aim to maintain the same speed on the treadmill, but increase her incline that by the end of the next month she can be at 5% incline. She will also aim to have at least a L3 on the elliptical. We will also encourage increasing leisure time activity at home by gradually increasing the amount of time and steps taken on days away from cardiac rehab. Short Term Goals Met: Patient has gradually increased her total exercise duration and has maintained a HR between 95-114bpm. She has improved her leisure time activity as she does a few 10 minute laps around her house every day. Short Term Goals Not Met Due To: The patient has failed to achieve our goal of 45 minutes of exercise by the end of her first month. However, she has been able to reach 40 minutes of exercise relatively regularly. She has not increased much on her intensity level (elliptical L1, and treadmill improvement went from 2.3mph-2.5mph and incline from 2.0%-2.5%). 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 We hope to accomplish this while maintaining a MET level of at least 4.0 on average. Another goal will be to increase upper body strength and endurance. She will currently start at 3lb weights, but will hope to progress towards 5lb weights at the end of the next two months. Throughout this progression it is a goal to improve the patient's LVEF from the current 45-50% to the normal >55%. Half-Way Goals Met: [employer] Goals Not Met Due To: PATIENT'S GOALS Patient Goals Due Date: 07/04/18 Patient Goals: Patient goals include to improve confidence, increase heart strength (e.g. LVEF), and upper body strength. Patient Goals Met: Patient has seen massive improvement in confidence when exercising. Prior to beginning the program she felt unsafe to walk and now she has increased her exercise here and during her leisure time at home. She continues to strive for improved upper body strength as her weights during strength training have increased from 3lbs to now using 6lbs. Patient Goals Not Met Due To: Unaware of improvements in LVEF. Cardiac Rehabilitation Plan of Care Comment: Our goal for the next month will be to increase the patient's total exercise time to at least 45 minutes and while doing so to also encourage a higher level of intensity. We will continue to monitor her HR, BP, and SPO2 during this progression so as to individualize her program to her capabilities and goals. Her knew HR goal will be 105-125bpm , with a goal to have her maintain this level throughout most of her exercise ( except during her warm up phase). DAINA
[2018-06-05 13:10] VITALS: BP 128/66
[2018-06-05 13:11] VITALS: BP 106/60
[2018-06-07 13:27] VITALS: BP 118/68
[2018-06-07 13:28] VITALS: BP 118/64
[2018-06-10 16:25] VITALS: BP 140/76
[2018-06-10 16:26] VITALS: BP 118/68
[2018-06-12 13:53] VITALS: BP 128/68
[2018-06-12 15:43] VITALS: BP 118/68
[2018-06-14 13:06] VITALS: BP 126/74
[2018-06-14 13:07] VITALS: BP 92/64
[2018-06-17 13:06] VITALS: BP_SYST 110; BP_SYST 120; BP_DIAS 70; BP_DIAS 72
[2018-06-19 13:04] VITALS: BP_SYST 110; BP_SYST 116; BP_DIAS 60; BP_DIAS 70
[2018-06-19 13:08] VITALS: BP_SYST 110; BP_SYST 116; BP_DIAS 60; BP_DIAS 70
[2018-06-21 13:28] VITALS: BP 132/78
[2018-06-21 13:29] VITALS: BP 110/60
[2018-06-24 12:54] VITALS: BP_SYST 118; BP_SYST 126; BP_DIAS 58; BP_DIAS 62
[2018-06-26 12:48] VITALS: BP 122/64
[2018-06-26 12:49] VITALS: BP 102/66
[2018-06-28 12:55] VITALS: BP_SYST 102; BP_SYST 124; BP_DIAS 62; BP_DIAS 72
[2018-07-01 13:00] VITALS: BP 118/66
[2018-07-01 13:01] VITALS: BP 102/62
[2018-07-05 13:09] VITALS: BP 130/64
[2018-07-06 13:44] VITALS: BP 112/70
[2018-07-08 13:46] VITALS: BP_SYST 124; BP_SYST 130; BP_DIAS 64
[2018-07-08 13:48] VITALS: BP 102/70
[2018-07-10 17:16] VITALS: BP 128/80
[2018-07-10 17:17] VITALS: BP 110/66
--- NOTE | 2018-07-11 12:51 | CARDIAC REHAB PLAN OF CARE ---
Physician: Adelfo Nance MD Patient is being seen: Jade Shi Medical Diagnosis: NSTEMI, Stent x 1 Date of Onset: 04/22/18 Date of Initial Evaluation: 04/29/18 Date patient was last seen: 07/10/18 Number of treatments: 29 INTERVENTIONS: SHORT TERM GOALS Short Term Goals Due Date: 08/11/18 Short Term Goals: Patient comes to cardiac rehab following a NSTEMI and Stent x1. She has a history of chronic kidney disease, asthma, and hypertension. Until now she has been relatively sedentary but is enthusiastic to start the program. Until her discharge from the program it will be our goal to maintain at least 45 minutes of exercise between the HR range of 105-125bpm, pending BP stays within a safe range and does not prove to be a limitation. The patient's primary goal will be to increase her intensity as far as HR and level is concerned and depending on her back she has the options to use either treadmill, bike, or elliptical. She will aim to maintain the same speed on the treadmill, but increase her incline that by the end of the program she can be at 6.5% incline. She will also aim to have at least a L6 on the elliptical. On the bike we will encourage her to reach at least 5.5 METs on average. We will also encourage increasing leisure time activity at home by gradually increasing the amount of time and steps taken on days away from cardiac rehab. Short Term Goals Met: Prior to her injury she was consistently reaching 45 minutes of continuous aerobic exercise. She also was able to achieve above her intensity goals: on the treadmill she reached 5.5% incline and on the elliptical she reached Level 4-5. She has been reaching successful MET levels, ranging anywhere between 3-5.3 METs. Short Term Goals Not Met Due To: The patient has been having some hip and back pain lately, which has inhibited her exercise to a certain extent. She has not reached the upper levels of her HR range, but has consistently reached lower levels (e.g. 105-109bpm) MEDICAL BILLING SUPERVISOR GOALS Toolman Goal Due Date: 08/11/18 Toolman Goals: penitentiary goals to be accomplished over the next month will be to increase total exercise time to achieving the recommended 150min/week of moderate intensity continuous exercise, with at least 15 minutes/session being done on the elliptical. We hope to accomplish this while maintaining a MET level of at least 4.0 on average. Another goal will be to increase upper body strength and endurance. She will currently start at 3lb weights, but will hope to progress towards 5lb weights at the end of the next two months. Throughout this progression it is a goal to improve the patient's LVEF from the current 45-50% to the normal >55%. Toolman Goals Met: Prior to her back/hip injury she was achieving the goal of 150min/week. She also has been achieving high MET levels--on the Elliptical her average is 3.1, the treadmill average is 4.3, and on the bike it is 5.2. Most of her exercise is done for at least 15 minutes. Toolman Goals Not Met Due To: No information related to LVEF PATIENT'S GOALS Patient Goals Due Date: 08/11/18 Patient Goals: Patient goals include to improve confidence, increase heart strength (e.g. LVEF), and upper body strength. Patient Goals Met: Patient has expressed fully her improvement with confidence. She has been enjoying her time at cardiac rehab and is notices how it has allowed her to do more in her daily life and activities. Patient Goals Not Met Due To: We will follow up with specific questions related to upper body strength and stamina. Cardiac Rehabilitation Plan of Care Comment: Our goal prior to her discharge from the program will be to encourage and help solidify these behavior changes she has created during her rehabilitation. This includes increasing structured exercise in terms of intensity and duration, as well as increasing leisure time activity. We will also encourage her flexilibity training and stretching as this has caused some obstacles during her exercise progression. We will continue to monitor her vitals during exercise and helping her learn symptom and intensity self monitoring. We will use this information gathered to help develop her an exercise prescription to follow after her discharge from the program. DAINA
[2018-07-12 13:19] VITALS: BP_SYST 110; BP_SYST 124; BP_DIAS 60; BP_DIAS 62
[2018-07-17 13:30] VITALS: BP_SYST 116; BP_SYST 124; BP_DIAS 66; BP_DIAS 68
[2018-07-26 12:56] VITALS: BP 140/72
[2018-07-26 12:57] VITALS: BP 112/62
== END 2018-07-28 ==
LOC: CARD 10:00
PROVIDERS: ATTEND Internal Medicine
DX: I25.2 Old myocardial infarction (principal); I12.9 Hypertensive chronic kidney disease with stage 1 through stage 4 chronic kidney disease, or unspecified chronic kidney disease; N18.9 Chronic kidney disease, unspecified; J45.909 Unspecified asthma, uncomplicated; Z95.5 Presence of coronary angioplasty implant and graft; I25.10 Atherosclerotic heart disease of native coronary artery without angina pectoris
CPT/HCPCS: 93798

== ENCOUNTER 2018-08-05 09:00 | Outpatient (RCR) | payer MEDICARE, BC ==
--- NOTE | 2018-07-29 13:45 | PT INITIAL EVALUATION ---
MEDICAL DIAGNOSIS: Left hip pain TREATMENT DIAGNOSIS: same, low back pain DATE OF ONSET: 06/28/18 SUBJECTIVE: Marybel Gallegos presents to physical therapy with complaints of L hip pain that started approximately the 3rd week of June 2018 for no apparent reason. She cannot recall a mechanism of injury. She reports that she has been participating in the cardiac rehabilitation program and she increased her activity during cardiac rehab along with increased her activity at home when the L hip injury started to bother her daily life. She reports that rests allows the hip to feel better. She also reports that walking and putting her weight on her L LE increase her L hip pain. She reports that it feels great today with 0/10 L hip pain. She reports that the pain feels like it starts in her back and then wraps around to the front of her hip. Pain location is Psoas major/Psoas minor. Pain scale is 0 on a ten point pain scale. REHAB PROBLEM LIST: Increased Pain Decreased ROM Decreased Strength Decreased Endurance Decreased Function PREVIOUS MEDICAL HISTORY: See EMR OCCUPATION: Retired OBJECTIVE: Posture: She demonstrated minimal posture deviations that included increased thoracic kyphosis, B rounded shoulders, and reduced lumbar lordosis. ROM: Trunk AROM: flexion: NIL with normal end feel. extension: minimal restriction with painful end feel. side gliding R: minimal restriction with painful end feel. side gliding L: NIL with normal end feel. Strength: B hip flexion, hip abduction, hip extension: 4+/5 with no pain. B knee flexion and extension: 4+/5 with no pain. B ankle DF and PF: 4+/5. Palpation: TTP: L PSOAS major/minor Sensation: Intact L2-S1 Special Tests: Repeated extension in lying: pain during the test and better following the test with increased R side gliding with return to normal end feel. Mobility: Independent Gait: She demonstrated normal gait mechanics with no deviations ASSESSMENT: Marybel will benefit from skilled physical therapy addressing the listed impairments to improve function and QOL. She demonstrated a provisional classification of derangement in her low back that significant improved symptoms and AROM in all directions with normalized end feels. Furthermore, it appears that her signs and symptoms are consistent with psoas major/minor strain that will recover and return to prior level of function with PT. Short Term Goals 4 weeks: Pt will demonstrate abolished low back pain and return to prior level of function to increased function and QOL. 6 weeks: Pt will demonstrate abolished L hip pain with ambulation and continue to perform exercise and increase physical activity without any L hip pain to return to prior level of function and return to prior level of function. Patient's Goals abolish L hip pain PLAN: Patient to be seen for Manual Therapy/STM/MET Strengthening/condition Range of Motion Spinal Stabilization Work Hardening/Cond Stretching Neuromuscular Re-ed Closed Chain Program Posture/Body mechanics Home Exercise Program Therapeutic Activities 2x/Week for 6 Weeks If you have any questions, comments, or concerns about this report or plan, please contact me at . Thank you, Peter Chua, PT, DPT MTDD
[2018-08-26] MEDS ORDERED: ATEN-65 PO (11:38)
== END 2018-08-05 18:00 | disposition home or self-care (01) ==
LOC: PT 09:00
PROVIDERS: ATTEND Internal Medicine
DX: M25.552 Pain in left hip (principal); M54.5 Low back pain
CPT/HCPCS: 97161

== ENCOUNTER 2018-08-05 10:00 | Outpatient (RCR) | payer MEDICARE, BC ==
[2018-07-29 12:50] VITALS: BP 142/64
[2018-07-29 12:51] VITALS: BP 127/76
[2018-07-31 13:06] VITALS: BP 116/62
[2018-08-02 17:03] VITALS: BP 118/66
[2018-08-02 17:04] VITALS: BP 98/58
[2018-08-05 13:23] VITALS: BP 130/70
[2018-08-05 13:24] VITALS: BP 110/62
== END 2018-08-05 18:00 | disposition home or self-care (01) ==
LOC: CARD 10:00
PROVIDERS: ATTEND Internal Medicine
DX: I25.2 Old myocardial infarction (principal); I12.9 Hypertensive chronic kidney disease with stage 1 through stage 4 chronic kidney disease, or unspecified chronic kidney disease; N18.9 Chronic kidney disease, unspecified; J45.909 Unspecified asthma, uncomplicated; Z95.5 Presence of coronary angioplasty implant and graft; I25.10 Atherosclerotic heart disease of native coronary artery without angina pectoris
CPT/HCPCS: 93798

== ENCOUNTER → 2018-08-21 | Outpatient (REF) | payer MEDICARE, BC | LOC: ZZSENDIN 09:30 | PROVIDERS: ATTEND Internal Medicine | DX: E05.90 Thyrotoxicosis, unspecified without thyrotoxic crisis or storm (principal); N18.9 Chronic kidney disease, unspecified; I25.10 Atherosclerotic heart disease of native coronary artery without angina pectoris | CPT/HCPCS: 82040; 82247; 82306; 82310; 82374; 82435; 82565; 82947; 83970; 84075; 84132; 84155; 84295; 84439; 84443; 84450; 84460; 84520 ==

== ENCOUNTER → 2018-08-21 | Outpatient (CLI) | payer MEDICARE, BC | LOC: US 02:29 | PROVIDERS: ATTEND Internal Medicine Cardiovascular Disease | DX: I25.110 Atherosclerotic heart disease of native coronary artery with unstable angina pectoris (principal); E78.00 Pure hypercholesterolemia, unspecified; I10 Essential (primary) hypertension | CPT/HCPCS: 36415; 82465; 83718; 84478; 93306 ==

== ENCOUNTER → 2018-08-26 | Outpatient (CLI) | payer MEDICARE, BC | LOC: LAB 11:44 | PROVIDERS: ATTEND Internal Medicine | DX: E83.52 Hypercalcemia (principal); E05.90 Thyrotoxicosis, unspecified without thyrotoxic crisis or storm | CPT/HCPCS: 36415; 82306; 82330; 82652; 83519; 83883; 84156; 84160; 84165; 84432; 84443; 84481; 86335; 86376; 86800 ==

== ENCOUNTER 2018-09-03 00:22 | Outpatient (RCR) | payer MEDICARE, BC ==
--- NOTE | 2018-09-04 15:05 | RADIOLOGY IMAGING REPORT ---
FACILITY: [facility] - [place] PATIENT NAME: Marybel Gallegos : 1945 MR: [id number] V: [id number] EXAM DATE: ORDERING PHYSICIAN: JESSENIA URBAN TECHNOLOGIST: Location: Patient: Marybel Gallegos : 1945 Visit/Account:[id number] Date of Sevice: 09/03/2018 THYROID IMAGE/UPTAKE MULTIPLE HISTORY: sub clinical hyperthyroid TECHNIQUE: 371 microcuries I-123 were administered orally. Radioiodine uptake values were calculated at 24 hours following tracer administration. Gamma camera images were obtained of the neck in variou s orientations. COMPARISON: Thyroid ultrasound July 04, 2018 FINDINGS: Thyroid radioiodine uptake at 24 hours is 18.9% (normal range 15-40 %). Thyroid radioiodine uptake at six hours is 6.5% (normal range 5-15%) Size and shape: Normal. Homogeneity: Normal. Nodules: None evident. IMPRESSION: 24 thyroid uptake of 18.9% Six hour thyroid uptake of 6.5% Both values fall within the low end of the normal range Report Dictated By: Zelda Garcia MD at 09/04/2018 2:59 PM Report E-Signed By: Zelda Garcia MD at 09/04/2018 3:02 PM WSN:[id number]
== END 2018-09-03 18:00 | disposition home or self-care (01) ==
LOC: RAD 00:22 → EDSTATUS 13:26 → RAD 18:00
PROVIDERS: ATTEND Internal Medicine
DX: E05.90 Thyrotoxicosis, unspecified without thyrotoxic crisis or storm (principal)
CPT/HCPCS: 78014; A9516

== ENCOUNTER → 2019-06-11 | Outpatient (CLI) | payer MEDICARE, OTHER ==
[~2019-06-11] MED LIST changes: +BISO5TAB23 PO; +PRED20TA6 PO; +UMEC1DIS INH
[2019-06-11 11:24] LABS: PLATELET COUNT, AUTOMATED 303 K/uL (150-450)
--- NOTE | 2019-06-11 11:54 | RADIOLOGY IMAGING REPORT ---
FACILITY: [facility] - [place] PATIENT NAME: Marybel Gallegos : 1945 MR: [id number] V: [id number] EXAM DATE: ORDERING PHYSICIAN: JESSENIA URBAN TECHNOLOGIST: Location: [facility] - [place] Patient: Marybel Gallegos : 1945 Visit/Account:[id number] Date of Sevice: 06/11/2019 Study: Frontal and lateral views of the chest Indication: Asthma coronary artery disease, cough Comparison study: April 20, 2018 Findings: PA and lateral views of the chest demonstrate no evidence of acute infiltrate. There is no evidence of pleural effusion. There is no evidence of pneumothorax. The mediastinal, cardiac, and diaphragmatic contours are unremarkable. The visualized bony structures are unremarkable. IMPRESSION: Unremarkable chest. Report Dictated By: Kristian Blankenship at 06/11/2019 11:45 AM Report E-Signed By: Kristian Blankenship at 06/11/2019 11:47 AM WSN:[id number]
== END ==
LOC: LAB 11:07
PROVIDERS: ATTEND Internal Medicine
DX: J45.909 Unspecified asthma, uncomplicated (principal); I25.10 Atherosclerotic heart disease of native coronary artery without angina pectoris; R05 Cough
CPT/HCPCS: 36415; 71046; 82040; 82247; 82310; 82374; 82435; 82465; 82565; 82947; 83718; 84075; 84132; 84155; 84295; 84439; 84443; 84450; 84460; 84478; 84520; 85025

== ENCOUNTER → 2019-06-25 | Outpatient (CLI) | payer MEDICARE, OTHER | LOC: RESP 04:14 | PROVIDERS: ATTEND Internal Medicine | DX: J45.909 Unspecified asthma, uncomplicated (principal); I25.10 Atherosclerotic heart disease of native coronary artery without angina pectoris | CPT/HCPCS: 94060; 94726; 94729 ==